=== PATIENT | male | born 1960 | race Caucasian/White ===

== ENCOUNTER 2017-03-22 22:09 | Observation (INO) | payer OTHER ==
[~2017-03-22] VITALS: Ht 177.8 cm; Wt 119.3 kg
[2017-03-22] MEDS ORDERED: ZOFRAN IV STA (22:50)
[2017-03-22] MEDS ORDERED: DILAUDID IV STA (22:50)
[2017-03-22] MEDS ORDERED: TORADOL IV STA (22:50)
[2017-03-22] MEDS ORDERED: NS 1000ML 1,000 ML IV ONE (23:00)
--- NOTE | 2017-03-22 23:07 | NUR ---
unsuccessful IV attempt x 1
--- NOTE | 2017-03-22 23:11 | ER.PDOC ---
General Chief Complaint: Abdomen Pain Stated Complaint: VOMITING TRAVEL OUT OF US: No Time seen by MD: 23:09 Source: patient Exam Limitations: no limitations History of Present Illness Timing/Duration: 4-6 hours Severity: moderate Modifying Factors: improves with eating Associated Symptoms: headaches, malaise Allergies: Coded Allergies: No Known Allergies (Unverified , 03/22/17) Past Medical History Medical History: cardiac problems, diabetes, hypertension Surgical History: knee Social History Smoking: non-smoker Alcohol Use: none Drug Use: none Reviewed Nursing Reviewed: Vital Signs, Abn. 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 NML as Tested Skin: Normal Color Lymphatic: No Adenopathy Results/Orders Results/Orders Laboratory Tests Test 03/22/17 00:00 03/22/17 23:10 Urine Collection Type UNKNOWN Urine Color YELLOW (YELLOW) Urine Appearance CLEAR (CLEAR) Urine Bilirubin NEGATIVE MG/DL (NEGATIVE) Urine Ketones NEGATIVE (NEGATIVE) Urine Specific Banner 1.010 (1.005-1.035) Urine pH 5 (5.0-6.0) Urine Protein NEGATIVE (NEGATIVE) Urine Urobilinogen NORMAL (NEGATIVE) Urine Nitrate NEGATIVE (NEGATAIVE) Urine Leukocyte Esterase NEGATIVE (NEGATIVE) Urine Blood NEGATIVE (NEGATIVE) Urine Glucose NORMAL (NEGATIVE) Opiates Screen NEGATIVE (NEGATIVE) Barbiturate Screen NEGATIVE (NEGATIVE) Urine Tricyclic Antidepressants NEGATIVE (NEGATIVE) Phencyclidine (PCP) Screen NEGATIVE (NEGATIVE) Amphetamines Screen NEGATIVE (NEGATIVE) Benzodiazepines Screen NEGATIVE (NEGATIVE) Cocaine Screen NEGATIVE (NEGATIVE) Ur Tetrahydrocannabinol (THC) Scrn NEGATIVE (NEGATIVE) White Blood Count 12.9 10^3/uL (4.5-11.0) Red Blood Count 4.82 10^6/uL (4.50-5.90) Hemoglobin 14.3 g/dL (13.9-16.3) Hematocrit 41.0 % (37.0-53.0) Mean Corpuscular Volume 85.1 fL (78-100) Mean Corpuscular Hemoglobin 29.7 pg (26-34) Mean Corpuscular Hemoglobin Concent 34.9 g/dL (33-37) Red Cell Distribution Width 14.0 % (11.5-14.5) Platelet Count 227 10^3/uL (150-400) Mean Platelet Volume 10.1 fL (7.8-11.0) Neutrophils (%) (Auto) 70.1 % (41.0-85.0) Lymphocytes (%) (Auto) 18.2 % (24.0-44.0) Monocytes (%) (Auto) 7.6 % (5.0-12.0) Neutrophils # (Auto) 9.0 10^3/uL (1.8-7.7) Lymphocytes # (Auto) 2.4 10^3/uL (1.0-4.8) Monocytes # (Auto) 1.0 10^3/uL (0.3-0.8) Absolute Immature Granulocyte (auto 0.13 10^3 u/L (0-2) Eosinophils % 2.9 % (0.0-5.0) Basophils % 0.2 % (0.0-0.2) Basophils # 0.0 10^3/uL (0.0-0.1) Nucleated Red Blood Cells 0 % (0-0) Eosinophil Count 0.4 10^3/uL (0.0-0.2) Prothrombin Time 11.5 SEC (9.8-11.9) Prothrombin Time INR (Non-Therap) 1.1 Sodium Level 141 mmol/L (132-145) Potassium Level 4.1 mmol/L (3.6-5.2) Chloride Level 106.0 mmol/L (96-109) Carbon Dioxide Level 22.5 mmol/L (20.0-32) Anion Gap 16.6 Blood Urea Nitrogen 20 mg/dL (7-18) Creatinine 1.30 mg/dL (0.59-1.40) Estimated GFR () 68.8 (>/=60) BUN/Creatinine Ratio 15.0 Glucose Level 137 mg/dL (70-110) Hemoglobin A1c 8.2 % (4.2-6.2) Calcium Level 9.4 mg/dL (8.4-10.5) Total Bilirubin 0.6 mg/dL (0.2-1.0) Aspartate Amino Transf (AST/SGOT) 20 U/L (0-35) Alanine Aminotransferase (ALT/SGPT) 41 U/L (12-78) Alkaline Phosphatase 79 U/L (50-136) Creatine Kinase MB 0.7 ng/mL (0.5-3.6) Troponin I < 0.02 ng/mL (0.00-0.05) Total Protein 7.7 g/dL (6.4-8.2) Albumin 4.0 g/dL (3.4-5.0) Globulin 3.7 Amylase Level 1508 U/L (25-115) Lipase 97175 U/L (114-286) Thyroid Stimulating Hormone (TSH) 4.021 mIU/mL (0.358-3.740) Serum Alcohol < 3 mg/dL (3-50) Percent Immature Gran (Cell Imm) 1.00 % (0.00-0.50) Helicobacter pylori Screen NEGATIVE (NEGATIVE) Administered Medications Medications (Trade) Dose Ordered Sig/Renetta Route PRN Reason Start Time Stop Time Status Last Admin Dose Admin Sodium Chloride 1,000 ml @ 1,000 mls/hr Q1H ONCE IV 03/22/17 23:00 03/23/17 00:00 DC 03/22/17 23:19 Hydromorphone HCl (Dilaudid) 1 mg OT STAT IV 03/22/17 22:50 03/22/17 22:57 DC 03/22/17 23:20 Ondansetron HCl (Zofran) 4 mg STAT STAT IV 03/22/17 22:50 03/22/17 22:57 DC 03/22/17 23:19 Ketorolac Tromethamine (Toradol) 30 mg STAT STAT IV 03/22/17 22:50 03/22/17 22:57 DC 03/22/17 23:19 Hydromorphone HCl (Dilaudid) 0.5 mg STAT STAT IV 03/23/17 00:52 03/23/17 00:53 DC 03/23/17 01:18 EKG/XRAY/CT/US EKG: NSR EKG Comments: HR 72, Nonspecific ST & T wave abnormality XRAY: chest XRAY Comments: CXR Neg for acute findings. Consult/PCP Time Consult/PCP Called: 02:53 Consult/PCP: Dr. Stone Reason/Comments: Graciously agreed to admit for further evaluation Departure Time of Disposition: 02:52 Disposition: 09 ADMITTED INPATIENT Impression: Primary Impression: Acute pancreatitis Qualified Codes: K85.90 - Acute pancreatitis without necrosis or infection, unspecified Additional Impression: Dehydration Condition: Stable Referrals: PCP,UNKNOWN (PCP) PRIMARY CARE PROVIDER Critical Care Note Total Time (mins): 30 GILA HURTADO MD Mar 22, 2017 23:11
[2017-03-22] MEDS ORDERED: ZOFRAN ONE (23:14)
[2017-03-22] MEDS ORDERED: NS 1000ML 1,000 ML ONE (23:14)
[2017-03-22] MEDS ORDERED: DILAUDID ONE (23:15)
[2017-03-22] MEDS ORDERED: TORADOL ONE (23:15)
[2017-03-22 23:16] LABS: BASOPHIL % 0.2 % (0.0-0.2); EOSINOPHIL # 0.4 10^3/uL (0.0-0.2); EOSINOPHIL % 2.9 % (0.0-5.0); HEMOGLOBIN 14.3 g/dL (13.9-16.3); LYMPHOCYTES # 2.4 10^3/uL (1.0-4.8); LYMPHOCYTES % 18.2 % (24.0-44.0); MEAN CELL HGB 29.7 pg (26-34); MEAN CELL HGB CONCENTRATION 34.9 g/dL (33-37); MEAN CORP VOLUME 85.1 fL (78-100); MEAN PLATELET VOLUME 10.1 fL (7.8-11.0); MONOCYTES % 7.6 % (5.0-12.0); NEUTROPHILS % 70.1 % (41.0-85.0); NUCLEATED RED BLOOD CELLS 0 % (0-0); PLATELET COUNT 227 10^3/uL (150-400); WHITE BLOOD CELL 12.9 10^3/uL (4.5-11.0)
[2017-03-22 23:29] LABS: BILIRUBIN,URINE NEGATIVE (NEGATIVE); UROBILINOGEN,URINE NORMAL (NEGATIVE)
[2017-03-22 23:45] LABS: ALANINE AMINOTRANSFERASE 41 U/L (12-78); ALKALINE PHOSPHATASE 79 U/L (50-136); ASPARTATE AMINO TRANSFERASE 20 U/L (0-35); CALCIUM 9.4 mg/dL (8.4-10.5); CARBON DIOXIDE 22.5 mmol/L (20.0-32); GLUCOSE 137 mg/dL (70-110)
[2017-03-22 23:55] LABS: APPEARANCE,URINE CLEAR (CLEAR); UA COLOR YELLOW (YELLOW)
[2017-03-22 23:56] LABS: UR BENZODIAZEPINE QUAL NEGATIVE (NEGATIVE); UR COCAINE QUAL NEGATIVE (NEGATIVE)
--- NOTE | 2017-03-22 23:57 | DIREP ---
PROCEDURE:CHEST 1 VIEW COMPARISON:None. INDICATIONS:abd pain FINDINGS: LUNGS/PLEURA:No significant pulmonary parenchymal abnormalities. No effusions. VASCULATURE:Normal. Unremarkable pulmonary vasculature. CARDIAC:Normal. No cardiac silhouette abnormality or cardiomegaly. MEDIASTINUM:Normal. No visible mass or adenopathy. BONES:Degenerative changes of the spine. OTHER:Negative. CONCLUSION: 1. Low lung volumes. No acute cardiopulmonary abnormality. Dictated by: Geovanny Palencia M.D. On 03/22/2017 at 11:55 PM
[2017-03-23 00:35] LABS: AMYLASE 1508 U/L (25-115)
[2017-03-23] MEDS ORDERED: DILAUDID IV STA ×2 (00:52→03:04)
[2017-03-23] MEDS ORDERED: DILAUDID ONE ×2 (01:14→03:13)
--- NOTE | 2017-03-23 01:32 | NUR ---
PT TO CT VIA WC
--- NOTE | 2017-03-23 02:22 | NUR ---
pain meds Dr Zuleta updated on pt's request for pain meds so he can get some sleep
--- NOTE | 2017-03-23 02:37 | DIREP ---
PROCEDURE:CT ABDOMEN/PELVIS W/ CONTRAST COMPARISON:None. INDICATIONS:vomiting, hx of cysts on the pancreas, cysts removal year 2011 TECHNIQUE:Axial images were created through the abdomen and pelvis with non-ionic intravenous contrast material. Oral contrast was administered. Sagittal and coronal reconstructions were performed from source images. FINDINGS: LUNG BASES:No suspicious airspace consolidation or pleural effusion. Approximate 8 mm nodule within the lingula with tiny sub 4 mm nodules within the left lower lobe. LIVER:Marked hepatic steatosis. No suspicious focal hepatic lesion. BILIARY:Previous cholecystectomy. PANCREAS:Diffuse pancreatic edema with peripancreatic inflammatory stranding, consistent with acute pancreatitis. SPLEEN:The spleen is not significantly enlarged. No focal splenic lesion identified. Multiple varices within the left upper quadrant and anterior abdomen. The main splenic vein is difficult to identify. Superior mesenteric vein and portal vein are patent. ADRENALS:The adrenal glands are unremarkable. URINARY TRACT:No hydronephrosis or suspicious renal lesion. Suspect tiny peripelvic left renal cysts. AORTA/VASCULAR:No aneurysmal dilatation. Diffuse calcifications distally. RETROPERITONEUM:No suspicious retroperitoneal lymphadenopathy. BOWEL/MESENTERY:No evidence for small bowel obstruction. Fairly extensive sigmoid diverticulosis. Additional scattered diverticuli of the remaining colon. No evidence to suggest acute diverticulitis. Normal appendix. No free air. ABDOMINAL WALL:Small fat containing umbilical hernia with small bilateral inguinal hernias. PELVIC ORGANS:Urinary bladder is nondistended. Prostate is not enlarged. No free fluid within the pelvis. BONES:Degenerative changes of the spine. No acute abnormality. CONCLUSION: 1. Acute pancreatitis. 2. Marked hepatic steatosis. 3. Extensive diverticulosis without acute diverticulitis. 4. Small nodules at the left lung base. Consider follow-up chest CT in 6-12 months, particularly if there are clinical risk factors such as smoking history. 5. Additional findings as above. Dictated by: Geovanny Palencia M.D. On 03/23/2017 at 02:30 AM
--- NOTE | 2017-03-23 02:45 | NUR ---
DR EFREM HURTADO TALKING ON PHONE WITH DR TOPETE
[2017-03-23] MEDS ORDERED: NOVOLOG SQ PRN (03:00)
[2017-03-23] MEDS ORDERED: DILAUDID IV PRN (03:00)
[2017-03-23] MEDS ORDERED: ZOFRAN IV PRN (03:00)
[2017-03-23] MEDS ORDERED: NS 1000ML 1,000 ML IV ONE (03:00)
[2017-03-23] MEDS ORDERED: LISI10TA2 PO (03:01)
[2017-03-23] MEDS ORDERED: INSU100I13 SQ ×2 (03:01)
[2017-03-23] MEDS ORDERED: METF10002 PO (03:01)
[2017-03-23] MEDS ORDERED: CHOL100011 PO (03:01)
[2017-03-23] MEDS ORDERED: OXYC5CAP4 PO (03:01)
[2017-03-23] MEDS ORDERED: ASPI-484 PO (03:01)
[2017-03-23] MEDS ORDERED: OMEP40CA6 PO (03:01)
[2017-03-23] MEDS ORDERED: CYAN10005 PO (03:01)
[2017-03-23] MEDS ORDERED: SIME125T PO (03:01)
[2017-03-23] MEDS ORDERED: MORP15TA PO (03:01)
[2017-03-23] MEDS ORDERED: NS 1000ML 1,000 ML ONE (03:13)
[2017-03-23 03:30] VITALS: BP 137/79
--- NOTE | 2017-03-23 04:58 | PRM.ACF1 ---
Admission Criteria Forms PANCREATITIS Clinical Indications for Admission to Inpatient Care (Place 'X' for any and all applicable criteria): Admission is indicated for 1 or more of the following (1)(2)(3)(4): [X]I. Acute pancreatitis[A] as indicated by 2 or MORE of the following: [ ]a) Abdominal pain (eg, epigastric, left upper quadrant) [X]b) Serum amylase or serum lipase greater than 3 times the upper limit of normal [X]c) Characteristic findings from abdominal imaging (eg, pancreatic inflammation, pancreatic necrosis, peripancreatic fluid collection)[B] [X]II. Pancreatitis (acute or chronic ) requiring inpatient care as indicated by 1 or more of the following [ ]a) Inability to maintain oral hydration Hypoxemia [ ]b) Evidence of infection (eg, fever, peripancreatic abscess) [X]c) Severe pain requiring acute inpatient management [ ]d) Hemodynamic instability [ ]e) Hypoxemia [ ]f) Acute renal failure [ ]g) Severe electrolyte abnormalities Extended stay beyond goal length of stay may be needed for (1)(11) [ ]a) Severe acute pancreatitis (10)(19) [ ]b) Persistent symptoms, ascites, or pleural effusion [ ]c) Abdominal compartment syndrome (10) [ ]d) Late complications [ ]e) Gallstones in gallbladder [ ]f) Acute renal failure (27) The original [employer] content created by [employer] has been revised. The portions of the content which have been revised are identified through the use of italic text or in bold,and [employer] [employer] [facility] has neither reviewed nor approved the modified material.All other unmodified content is copyright [employer]. Please see references footnoted in the original [employer] edition 2016 Is ACF/Sylvie's added/comple: YES ENID CORDOVA CDS Mar 23, 2017 04:58
[2017-03-23 08:43] VITALS: BP 147/90
[2017-03-23] MEDS: DILAUDID IV PRN ×3 (08:43→17:34)
--- NOTE | 2017-03-23 08:52 | NUR ---
ASSESSMENT PT STATES HE HAS PAIN TO UPPER ABDOMEN, DISTENTION NOTED AND TENDER TO PALPATATION.
--- NOTE | 2017-03-23 10:01 | NUR ---
DISCHARGE PLANNING: SS VISITED WITH PT AND REGARDING DISCHARGE PLANNING. PT LIVES IN [place] WITH HIS . PT HAS DME IN PLACE WHICH CONSIST OF A CANE AND WALKER HE USES NEEDED. PT STATED HE AND HIS ARE HERE VISITING THEIR DAUGHTER WHO IS ABOUT TO HAVE A BABY. NO FURTHER NEEDS NOTED OR IDENTIFIED AT THIS TIME. PT SAFETY HANDOUT ADDRESSED, NO QUESTIONS ASKED, UNDERSTANDING VERBALIZED. SS TO CONTINUE TO MONITOR AND ASSIST WITH DISCHARGE PLANNING NEEDS.
[2017-03-23] MEDS ORDERED: D5W-1/2 NS/KCL 20MEQ 1,000 ML IV SCH (12:00)
[2017-03-23 12:41] VITALS: BP 147/76
[2017-03-23] MEDS ORDERED: LIPA1CAP4 PO (15:56)
[2017-03-23] MEDS ORDERED: DOCU250C PO (15:56)
[2017-03-23] MEDS ORDERED: METO25TA9 PO (15:56)
[2017-03-23] MEDS ORDERED: ALBU8.5H3 IH (15:56)
[2017-03-23] MEDS ORDERED: INSU100V8 SQ (15:56)
[2017-03-23] MEDS ORDERED: FURO20TA3 PO (15:56)
[2017-03-23] MEDS ORDERED: LOVENOX SQ ONE (16:44)
--- NOTE | 2017-03-23 16:54 | NUR ---
new order VERBAL ORDER RECEIVED TO INCREASE D51/2 NS WITH 20 OF K TO 120/ML HR. FLUID INCREASED AT THIS TIME
[2017-03-23] MEDS ORDERED: LOVENOX SQ SCH (17:00)
[2017-03-23 17:28] VITALS: BP 170/84
[2017-03-23 17:57] VITALS: BP 170/84
--- NOTE | 2017-03-23 17:57 | HPH ---
ADMIT DATE: 03/23/2017 The patient is being admitted as an inpatient to [facility] [place]. PRIMARY CARE PHYSICIAN: [place] [facility] in [place]. ADMITTING DIAGNOSES: 1. Acute pancreatitis with epigastric pain, and nausea and vomiting. 2. Type 2 diabetes mellitus. 3. Hypertension. 4. Coronary artery disease. CHIEF COMPLAINT: Belly pain and vomiting. HISTORY OF PRESENT ILLNESS: As follows; the patient is a 56-year-old gentleman, who is from [place], visiting his daughter who is having a baby. He started to have intense epigastric pain radiating to the back with nausea and vomiting the past day and this kept on going and the pain was unrelenting. This has affected his eating habits. No diarrhea reported. No chest pain. No shortness of breath. No fevers. No chills. No dysuria. No hemoptysis. No hematemesis. No melena. No hematochezia reported. No trauma reported. He states that he has had similar pain before with his bouts of pancreatitis. PAST MEDICAL HISTORY: Significant for type 2 diabetes mellitus, coronary artery disease, hypertension, and history of pancreatitis. PAST SURGICAL HISTORY: He has had knee surgeries. He has had some abdominal surgery as well where he had a pseudocyst formation around his pancreas that needed to be drained. ALLERGIES: NO KNOWN DRUG ALLERGIES. SOCIAL HISTORY: He does not smoke. No alcohol use, no illicit drug use reported. FAMILY HISTORY: Asked and noncontributory for this admission. MEDICATIONS: Include albuterol, aspirin, vitamin B12, Lasix, Lantus, Creon, lisinopril, metoprolol, morphine sulfate, vitamin D3, Colace, metformin, omeprazole, oxycodone, and simethicone. PHYSICAL EXAMINATION: VITAL SIGNS: On admission, temperature is 97.5, pulse rate 64, respirations 18, blood pressure 137/79, O2 sats 98%. GENERAL: He is in no acute distress, awake and alert. He had already received 2 mg of Dilaudid and his pain is under control. HEENT: Oropharynx was clear. Moist mucous membranes noted. No maxillary sinus tenderness. NECK: Supple. No JVD noted. HEART: S1, S2 audible. No murmurs. He was not tachycardic. LUNGS: Clear bilaterally. He is not tachypneic. ABDOMEN: Bowel sounds were present, soft abdomen. He was mildly tender to the epigastric area, but no rebound or guarding noted. No masses felt. EXTREMITIES: No jaundice, no petechia, no purpura, 2+ distal pulses are noted. SKIN: Warm and dry. LABORATORY DATA: Labs were drawn. He had a lipase of 27,681, amylase of 1508, glucose 137, BUN 20, creatinine 1.3. CBC had a white count of 12,900, hemoglobin 14.3, and platelet count of 227. Coags were normal. UA was normal. He had a chest x-ray that did not show any acute abnormalities other than low lung volumes. CT scan of the abdomen showed acute pancreatitis with no pseudocyst, no fluid collection, no abscess. He had some hepatic steatosis noted. Diverticulosis noted, but no diverticulitis. A small nodule was noted at the left lung base. ASSESSMENT AND RECOMMENDATIONS: My assessment is we have this gentleman with acute pancreatitis, with underlying coronary artery disease, diabetes, and hypertension. I will go ahead and keep him n.p.o. on IV fluids. I will follow his sugars and give him pain medications for the time being. Since [facility], we are notified that once he is stabilized, [facility]. Negrita Stone MD DR: JENNIFER/sohan JOB# [id number]
--- NOTE | 2017-03-23 18:25 | NUR ---
REPORT REPORT CALLED TO TYRON SUAREZ WITH [facility].
--- NOTE | 2017-03-23 22:03 | DSH ---
DATE OF DISCHARGE: 03/23/2017 DATE OF TRANSFER to [facility] IN [place]: 03/23/2017. ADMITTING DIAGNOSES: Acute pancreatitis with nausea, vomiting and epigastric pain with diabetes, hypertension and coronary artery disease and chronic pain syndrome. DISCHARGE DIAGNOSES: Acute pancreatitis with diabetes, hypertension, coronary artery disease. HOSPITAL COURSE: The patient is a 56-year-old gentleman visiting his daughter from [place]. He developed increasing epigastric pain and came in with acute pancreatitis. His pain is under control now with stable vital signs. Since [facility], the [facility] called [facility] and asked for him to be [facility] over to the [facility] for continued management. So, at this time, since he is stable, we are arranging transportation to send him over to the [facility]. Dr. Langley is the accepting physician over there. We will keep him n.p.o. on IV fluids for the time being. Negrita Stone MD DR: JENNIFER/sohan JOB# [id number]
[2017-03-24] MEDS ORDERED: PROTONIX IV IV SCH (09:00)
== END 2017-03-23 16:50 ==
LOC: ER 22:09 → MS 03-23 03:06 → INTOOBSV 03-23 03:06
PROVIDERS: ADMIT Pediatrics; ATTEND Pediatrics
DX: K85.90 Acute pancreatitis without necrosis or infection, unspecified (principal); E86.0 Dehydration; I10 Essential (primary) hypertension; E11.9 Type 2 diabetes mellitus without complications; R11.2 Nausea with vomiting, unspecified; I25.10 Atherosclerotic heart disease of native coronary artery without angina pectoris; G89.4 Chronic pain syndrome
CPT/HCPCS: 36415 ×2; 71010; 74177; 80053; 80307; 81002; 82150; 82553; 82948 ×3; 83036; 83690; 84443; 84478; 84484; 85007; 85025; 85610; 86677; 93005; 96361 ×3; 96372; 96374; 96375; 96376 ×2; 99285; G0378 ×14; G0481; J1170 ×7; J1650; J1885; J2405 ×2; J7030 ×2; J7070; Q9967; Q9963